=== PATIENT | female | born 1985 | race Caucasian/White ===

== ENCOUNTER 2016-10-12 14:26 | Outpatient (CLI) | payer OTHER ==
[2012-05-21 23:47] VITALS: BP 99/65
[2016-10-12 14:42] LABS: BASOPHILS % 0.9 (0.0-1.5); EOSINOPHILS % 2.4 % (0.0-6.8); MEAN CORPUSCULAR VOLUME 97.4 fl (80.0-100.0); MONOCYTES % 3.6 % (0.0-11.0); NEUTROPHILS # 2.7 # k/uL (1.4-7.7)
[2016-10-12 15:18] LABS: eGFR (African) > 60; eGFR (Non-African) > 60
== END 2016-10-12 14:36 ==
LOC: LAB 14:26
PROVIDERS: ATTEND Nurse Practitioner Family
DX: E03.9 Hypothyroidism, unspecified (principal); E05.90 Thyrotoxicosis, unspecified without thyrotoxic crisis or storm; Z91.14 Patient's other noncompliance with medication regimen; Z79.899 Other long term (current) drug therapy
CPT/HCPCS: 36415; 80053; 84439; 84443; 85025

== ENCOUNTER 2018-04-16 16:37 | Outpatient (CLI) | payer OTHER ==
[2012-05-21 23:47] VITALS: BP 99/65
== END 2018-04-16 16:40 ==
LOC: LAB 16:37
PROVIDERS: ATTEND Nurse Practitioner Family
DX: E03.9 Hypothyroidism, unspecified (principal)
CPT/HCPCS: 36415; 84439; 84443; 84481

== ENCOUNTER 2018-05-16 15:24 | Outpatient (CLI) | payer OTHER ==
[2012-05-21 23:47] VITALS: BP 99/65
== END 2018-05-16 15:25 ==
LOC: LAB 15:24
PROVIDERS: ATTEND Nurse Practitioner Family
DX: E03.9 Hypothyroidism, unspecified (principal)
CPT/HCPCS: 36415; 84439; 84443; 84481

== ENCOUNTER 2018-12-05 09:17 | Outpatient (CLI) | payer OTHER ==
[2012-05-21 23:47] VITALS: BP 99/65
[2018-12-16 09:32] LABS: BASOPHILS % 0.6 % (0.0-1.5); NEUTROPHILS # 3.2 # k/uL (1.4-7.7); SEGMENTED NEUTROPHILS % 59 % (39-79)
[2018-12-16 09:33] LABS: OVALOCYTES 1+ (NEGATIVE)
[2018-12-16 09:35] LABS: HDL 28 mg/dL (>40); TSH > 100.000 mIU/l (0.465-4.685); eGFR (Non-African) > 60
--- NOTE | 2018-12-24 10:56 | Diagnostic Imaging Report ---
CECY PAZ [facility] [id number] [facility] [address] [id number] Report Submission Date: Dec 05, 2018 11:10:47 AM CDT Patient Study Name: ZAK TIDWELL Date: Dec 05, 2018 9:33:41 AM CDT Modality Type: US Gender: F Description: US TRANSVAGIONAL : 89 Institution: [facility] Physician: CECY PAZ Exam: Endovaginal ultrasound. History: Heavy bleeding. Real-time grayscale imaging of the pelvis and vaginally is performed. The uterus is retroverted measuring 7.1 x 5.0 x 6.7 cm. The endometrial canal measures 4.4 mm in with. The right ovary measures 3.1 x 2.5 x 2.9 cm. The left ovary measures 3.1 x 1.9 x 2.3 cm. Both ovaries are associated with follicles. Free fluid in the adnexa bilaterally is noted. Impression: Retroverted uterus. Bilateral ovarian follicles. Free fluid in the adnexa bilaterally. Electronically signed on Dec 05, 2018 11:10:47 AM CDT by: Tom WINN
== END 2018-12-05 09:35 ==
LOC: LAB 09:17
PROVIDERS: ATTEND Nurse Practitioner Family
DX: E07.9 Disorder of thyroid, unspecified (principal); N93.9 Abnormal uterine and vaginal bleeding, unspecified; R53.83 Other fatigue
CPT/HCPCS: 36415; 76830; 80053; 80061; 82306; 82607; 83001; 83002; 84439; 84443; 85025; 88148; G0143

== ENCOUNTER 2019-02-25 10:09 | Emergency (ER) | payer OTHER ==
[2019-02-25] MEDS ORDERED: POLYMYXIN B SULF AS ONE (10:35)
[2019-02-25] MEDS ORDERED: NEOMYCIN AS ONE (10:35)
[2019-02-25] MEDS ORDERED: [UNRECOGNIZED DRUG - OTHER] AS ONE (10:35)
--- NOTE | 2019-02-25 10:39 | ED Physician Documentation ---
Ear Complaints - HISTORIAN Historian: patient - HPI Stated Complaint: left ear pain, hearing loss Chief Complaint: Ear Complaints Timing: still present Location of Pain: L ear Severity: moderate Associated Symptoms: denies: fever - ROS CONST: no problems CVS/RESP: none MS/SKIN/LYMPH: none NEURO/PSYCH: none - PAST HX Past History: none Allergies/Adverse Reactions: Allergies Allergy/AdvReac Type Severity Reaction Status Date / Time No Known Allergies Allergy Verified 02/25/19 10:20 - SOCIAL HX Smoking History: non-smoker Alcohol Use: none Drug Use: none - FAMILY HX Family History: No - VITAL SIGNS Vital Signs: Vital Signs Temp Pulse Resp BP Pulse Ox 99/65 05/21/12 23:45 - REVIEWED ASSESSMENTS Nursing Assessment Reviewed: Yes Vitals Reviewed: Yes ED Results Lab/Radiology - Orders Orders: ED Orders Category Date Time Status Neomycin/Polymyxin B/Hydrocort [Cortisporin Otic] Med 02/25/19 10:35 Once 4 drop NOW ONE Ear Complaint Physical Exam - EXAM General Appearance: no acute distress, alert Ear: auricle nml, 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 Cortisporin 4 drops to left ear every 8 hours 2. Decongestants (Sudafed) and antihistamines (Benedryl, Zyrtec, Claritin etc) could be beneficial to help with ear pain/equalization 3. Ear drum may take 6-8 weeks to heal 4. Follow up with PCP within 1 week for ear recheck 5. Return to ER for new or worsening symptoms Condition: Stable Disposition: 01 HOME, SELF-CARE Decision to Admit: NO Date of Decison to Admit: 02/25/19 Decision Time: 10:39
[2019-02-25 11:14] VITALS: BP 110/73
== END 2019-02-25 10:45 | disposition home or self-care (01) ==
LOC: ED 10:09
DX: H72.92 Unspecified perforation of tympanic membrane, left ear (principal)